=== PATIENT | male | born 1990 | race Asian ===

== ENCOUNTER 2020-09-05 23:23 | Emergency (ER) | payer OTHER ==
[~2020-09-05] VITALS: Ht 170.2 cm; Wt 80.7 kg
[2020-09-06] MEDS ORDERED: BOOSTRIX/ADACEL VACCINE (DIPHTH/PERTUSS/ACELL/TETANUS) 0.5ML SYR IM ONE (01:15)
[2020-09-06] MEDS ORDERED: AUGMENTIN 875 MG TAB PO ONE ×2 (01:15)
[2020-09-06] MEDS ORDERED: LIDOCAINE 1% MDV 20ML VIAL SC ONE (01:15)
[2020-09-06] MEDS ORDERED: NEOSPORIN OINT 0.9 GM PKT TOP ONE (01:20)
[2020-09-06] MEDS ORDERED: BACI500O21 TOP (01:40)
[2020-09-06] MEDS ORDERED: AUGM875T28 PO (01:40)
[2020-09-06] MEDS ORDERED: IBUP-1022 PO (01:40)
[2020-09-06] MEDS ORDERED: IBUPROFEN 600MG TAB PO ONE (01:45)
[2020-09-06] MEDS ORDERED: ACETAMINOPHEN 500 MG TAB PO ONE (01:45)
[2020-09-06 02:05] VITALS: BP 157/94
== END 2020-09-06 02:06 | disposition home or self-care (01) ==
LOC: EDBD 23:23 → M ED 23:23
DX: S81.811A Laceration without foreign body, right lower leg, initial encounter (principal); S81.831A Puncture wound without foreign body, right lower leg, initial encounter; W54.0XXA Bitten by dog, initial encounter; Y92.89 Other specified places as the place of occurrence of the external cause; Y93.9 Activity, unspecified; Y99.9 Unspecified external cause status